=== PATIENT | female | born 1930 | race African-American/Black ===

== ENCOUNTER 2017-01-07 07:27 | Emergency (ER) | payer OTHER ==
[~2017-01-07 07:27] MED LIST: ACET325T9 PO; ACET650S19 PO; AMLO2.5T2 PO; AMLO5TAB4 PO; ASPI325T4 PO; CEPH-264 PO; D ME PO; DONE5TAB33 PO; DOXY100T PO; FURO-68 PO; FURO40TA4 PO; GABA-585 PO; IPRA3AMP IH; IPRA3AMP23 IH; LISI2.5T PO; MAGN400C PO; METO-269 PO; MULT-18 PO; ONDA4TAB7 PO; PANT40TA3 PO; PANT40TA5 PO; POTA10CA PO; POTA10TA31 PO; PRED-220 PO; RANI75TA95 PO
[2017-01-07] MEDS ORDERED: FAMOTIDINE 20 MG/2 ML VIAL IVP ONE (07:30)
[2017-01-07] MEDS ORDERED: methylPREDNISolone SOD SUCC PF 125 MG/2 ML VIAL. IV ONE (07:30)
[2017-01-07] MEDS ORDERED: IV NORMAL SALINE 500ML BAG 500 ML IV ONE (07:30)
--- NOTE | 2017-01-07 07:35 | PHYS DOC ---
Past Medical History Past Medical History: CHF, Dementia, Diabetes-Type II, GERD, Hypertension, UTI , Other Additional Past Medical Histor: alzheimer; kidney CA; hypopotassium; wheezing; neuropathy; cerebral degener Past Surgical History: No Surgical History Additional Past Surgical Histo: unknown Alcohol Use: None Drug Use: None Adult General Chief Complaint Chief Complaint: ALLERGIC REACTION HPI HPI Patient is a 86 year old female presents emergency room via EMS transport from local nursing facility with concerns for possible allergic reaction secondary to swollen tongue that was observed by the nursing staff at 0650 this morning. EMS did provide 25 mg of Benadryl IV in route to the facility. There was no known contacts with known allergens the patient has ( sulfa, adhesive and lisinopril). It is reported by EMS that patient has been on Levaquin for 5 days , family is not bedside, states the patient was initiated on the Levaquin after concern for pneumonia as "her confusion was worse", and she was noted to have a chest x-ray with concerning findings. According to EMS and patient's medication sheet, patient has not received any medications this morning. The last medication she received was her bedtime medications. No medications were given this morning. Patient herself has no recall of previous episodes similar to this , although patient's daughter states that she may have had a similar reaction after receiving sulfa several years ago. She does have a history of dementia, though she is answering all questions appropriately in the ED at this time. Review of Systems Review of Systems Constitutional: Denies fever or chills [] Eyes: Denies change in visual acuity, redness, or eye pain [] HENT: Denies nasal congestion or sore throat [] Respiratory: Denies cough or shortness of breath [] Cardiovascular: No additional information not addressed in HPI [] GI: Denies abdominal pain, nausea, vomiting, bloody stools or diarrhea [] : Denies dysuria or hematuria [] Musculoskeletal: Denies back pain or joint pain [] Integument: Denies rash or skin lesions [] Neurologic: Denies headache, focal weakness or sensory changes [] Endocrine: Denies polyuria or polydipsia [] Current Medications Current Medications Current Medications Medications (Trade) Dose Ordered Sig/Juan F Start Time Stop Time Status Last Admin Dose Admin Famotidine (Pepcid) 20 mg 1X ONCE 01/07/17 07:30 01/07/17 07:33 DC 01/07/17 07:41 20 MG Methylprednisolone Sodium Succinate (Solu-Medrol 125mg Vial) 125 mg 1X ONCE 01/07/17 07:30 01/07/17 07:33 DC 01/07/17 07:41 125 MG Sodium Chloride (Iv Sodium Chloride 0.9% 500ml Bag) 500 ml @ 500 mls/hr 1X ONCE 01/07/17 07:30 01/07/17 08:35 DC Allergies Allergies Allergies Coded Allergies Type Severity Reaction Last Updated Verified Sulfa (Sulfonamide Antibiotics) Allergy Severe Possible Angioedema 12/03/15 Yes lisinopril Allergy Severe Possible Angioedema 09/05/14 Yes adhesive Allergy Intermediate 09/06/14 Yes I S O L A T I O N *CONTACT* Allergy Unknown 12/03/15 Yes Physical Exam Physical Exam Constitutional: Well developed, well nourished, no acute distress, non-toxic appearance. Patient sitting in a high semi-Fowlers position no acute distress. HENT: Normocephalic, atraumatic, bilateral external ears normal, oropharynx moist, no oral exudates, nose normal. There is no facial angioedema. There is no trismus or muffled speech. Patient's tongue does not appear to be edematous. It does appear to be large in size which is slightly larger on the left than the right.. Posterior oropharynx is clear without any evidence of swelling/ edema. Eyes: PERRLA, EOMI, conjunctiva normal, no discharge. [] Neck: Normal range of motion, no tenderness, supple, no stridor. There is no palpable subcutaneous emphysema or deviation of the trachea. Cardiovascular:Heart rate regular rhythm, no murmur [] Lungs & Thorax: Bilateral breath sounds clear to auscultation [] Abdomen: Bowel sounds normal, soft, no tenderness, no masses, no pulsatile masses. [] Skin: Warm, dry, no erythema, no rash. [] Back: No tenderness, no CVA tenderness. [] Extremities: No tenderness, no cyanosis, no clubbing, ROM intact, no edema. [] Neurologic: Alert and oriented X 3, normal motor function, normal sensory function, no focal deficits noted. [] Psychologic: Affect normal, judgement normal, mood normal. [] Current Patient Data Vital Signs Vital Signs Date Time Temp Pulse Resp B/P Pulse Ox O2 Delivery O2 Flow Rate FiO2 01/07/17 07:27 98.4 96 20 174/84 95 Nasal Cannula 2 98.4 Lab Values Laboratory Tests Test 01/07/17 08:06 01/07/17 08:10 Urine Collection Type Unknown Urine Color Yellow Urine Clarity Clear Urine pH 7.5 Urine Specific [place] 1.020 Urine Protein Negativemg/dL (NEG-TRACE) Urine Glucose (UA) Negativemg/dL (NEG) Urine Ketones (Stick) Negativemg/dL (NEG) Urine Blood Negative (NEG) Urine Nitrite Negative (NEG) Urine Bilirubin Negative (NEG) Urine Urobilinogen Dipstick 0.2mg/dL (0.2 mg/dL) Urine Leukocyte Esterase Negative (NEG) Urine RBC 0/HPF (0-2) Urine WBC 1-4/HPF (0-4) Urine Squamous Epithelial Cells Mod/LPF Urine Bacteria 0/HPF (0-FEW) Urine Mucus Slight/LPF White Blood Count 8.2x10^3/uL (4.0-11.0) Red Blood Count 4.14x10^6/uL (3.50-5.40) Hemoglobin 9.8g/dL (12.0-15.5) L Hematocrit 31.8% (36.0-47.0) L Mean Corpuscular Volume 77fL (79-100) L Mean Corpuscular Hemoglobin 24pg (25-35) L Mean Corpuscular Hemoglobin Concent 31g/dL (31-37) Red Cell Distribution Width 17.2% (11.5-14.5) H Platelet Count 300x10^3/uL (140-400) Neutrophils (%) (Auto) 58% (31-73) Lymphocytes (%) (Auto) 31% (24-48) Monocytes (%) (Auto) 7% (0-9) Eosinophils (%) (Auto) 3% (0-3) Basophils (%) (Auto) 1% (0-3) Neutrophils # (Auto) 4.7x10^3uL (1.8-7.7) Lymphocytes # (Auto) 2.5x10^3/uL (1.0-4.8) Monocytes # (Auto) 0.6x10^3/uL (0.0-1.1) Eosinophils # (Auto) 0.2x10^3/uL (0.0-0.7) Basophils # (Auto) 0.1x10^3/uL (0.0-0.2) Sodium Level 145mmol/L (136-145) Potassium Level 3.9mmol/L (3.5-5.1) Chloride Level 106mmol/L (98-107) Carbon Dioxide Level 32mmol/L (21-32) Anion Gap 7 (6-14) Blood Urea Nitrogen 19mg/dL (7-20) Creatinine 1.1mg/dL (0.6-1.0) H Estimated GFR (Cockcroft-Gault) 57.0 Glucose Level 100mg/dL (70-99) H Calcium Level 9.5mg/dL (8.5-10.1) Laboratory Tests 01/07/17 08:10 Laboratory Tests 01/07/17 08:10 EKG EKG ECG: Rhythm strip: Sinus rhythm, heart rate 84 bpm, no ectopy. As interpreted by me. Radiology/Procedures Radiology/Procedures Not indicated. [] Course & Med Decision Making Course & Med Decision Making 20 mg of Pepcid and 125 mg of Solu-Medrol were ordered. Dr. Holguin was made aware of this patient. I did assume care of this patient, patient did not have any evidence of acute angioedema on my examination, with her speech, and no mucosal swelling with identified. Patient has received the Solu-Medrol, Pepcid and Benadryl as stated. Due to daughters report of some mental status changes potentially, and of cough, chest x-rays obtained that revealed a likely persistent pleural effusion, no evidence of infiltrates, laboratory studies and urine to not reveal evidence of infection or other concerning findings. Patient upon review of records, is on hospice. She states that she is feeling well, and like to return to the facility. After several hours of observation the ED, she's not had any change in her condition, I did speak with Dr. Johns, her primary care provider, who is agreeable with plan for the patient return to the facility where they will continue to monitor her, along with her hospice nursing, and will discontinue the Levaquin as there is no indication for its use. Patient is agreeable to this plan, resting calmly awaiting transport back to the nursing facility. Dragon Disclaimer Dragon Disclaimer This electronic medical record was generated, in whole or in part, using a voice recognition dictation system. Departure Impression: Primary Impression: Encounter for medical screening examination Disposition: HOME, SELF-CARE Condition: STABLE Referrals: STAS JOHNS MD (PCP) Departure Departure Impression: Primary Impression: Encounter for medical screening examination Disposition: HOME, SELF-CARE Condition: STABLE Referrals: STAS JOHNS MD (PCP) SADE CADENA Jan 07, 2017 07:35 FARZANA HOLGUIN DO Jan 07, 2017 10:20
--- NOTE | 2017-01-07 08:19 | RAD ---
Portable chest, 01/07/2017: History: Cough Comparison is made to a study from 02/10/2016. The patient is rotated to the right. The heart is enlarged. There is a retrocardiac density compatible with a hiatal hernia. There is unchanged widening of the superior mediastinum, probably due to ectatic vascular structures accentuated by patient rotation. The pulmonary vascularity is normal. There is a persistent left basilar opacity with blunting of the left lateral costophrenic angle compatible with ongoing or recurrent pleural fluid. The right chest is clear. The bony structures are demineralized. IMPRESSION: 1. Cardiomegaly. 2. Small ongoing or recurrent left pleural effusion. 3. Hiatal hernia.
[2017-01-07 08:24] LABS: BASO # 0.1 x10^3/uL (0.0-0.2); BASO % 1 % (0-3); EOS % 3 % (0-3); HEMATOCRIT 31.8 % (36.0-47.0); HEMOGLOBIN 9.8 g/dL (12.0-15.5); LYMPH # 2.5 x10^3/uL (1.0-4.8); LYMPH % 31 % (24-48); MEAN CORPUSCULAR HEMOGLOBIN 24 pg (25-35); MEAN CORPUSCULAR HGB CONC 31 g/dL (31-37); MEAN CORPUSCULAR VOLUME 77 fL (79-100); MONO % 7 % (0-9); NEUT % 58 % (31-73); PLATELET COUNT 300 x10^3/uL (140-400); RED BLOOD COUNT 4.14 x10^6/uL (3.50-5.40); RED CELL DISTRIBUTION WIDTH 17.2 % (11.5-14.5); WHITE BLOOD COUNT 8.2 x10^3/uL (4.0-11.0)
[2017-01-07 08:26] LABS: BILIRUBIN,URINE NEGATIVE (NEG); GLUCOSE,URINE NEGATIVE (NEG); NITRITE,URINE NEGATIVE (NEG); PH,URINE 7.5; PROTEIN,URINE NEGATIVE (NEG-TRACE); UROBILINOGEN,URINE 0.2 mg/dL (0.2 mg/dL)
[2017-01-07 08:36] LABS: CALCIUM 9.5 mg/dL (8.5-10.1); CREATININE 1.1 mg/dL (0.6-1.0); POTASSIUM 3.9 mmol/L (3.5-5.1)
[2017-01-07 08:48] LABS: BACTERIA,URINE 0 /HPF (0-FEW); RBC,URINE 0 /HPF (0-2); SQUAMOUS EPITHELIAL CELL,UR MOD /LPF
[2017-01-07 10:00] VITALS: BP 193/81
== END 2017-01-07 10:53 | disposition home or self-care (01) ==
LOC: ER 07:27
DX: Z00.00 Encounter for general adult medical examination without abnormal findings (principal); T78.40XA Allergy, unspecified, initial encounter; I11.0 Hypertensive heart disease with heart failure; I50.9 Heart failure, unspecified; E11.40 Type 2 diabetes mellitus with diabetic neuropathy, unspecified; F02.80 Dementia in other diseases classified elsewhere, unspecified severity, without behavioral disturbance, psychotic disturbance, mood disturbance, and anxiety; G30.9 Alzheimer's disease, unspecified; K21.9 Gastro-esophageal reflux disease without esophagitis; K44.9 Diaphragmatic hernia without obstruction or gangrene; Z88.2 Allergy status to sulfonamides; Z88.8 Allergy status to other drugs, medicaments and biological substances; Z91.041 Radiographic dye allergy status
CPT/HCPCS: 36415; 71010; 80048; 81001; 85027; 96374; 96375; 99285; J2930; S0028

== ENCOUNTER 2019-08-25 14:36 | Emergency (ER) | payer MEDICARE, OTHER ==
[~2019-08-25] VITALS: Ht 157.5 cm; Wt 90.7 kg
[~2019-08-25 14:36] MED LIST changes: +ACET650S PO; -ACET650S19 PO; -ASPI325T4 PO; +ASPI325T8 PO; -DONE5TAB33 PO; +DONE5TAB56 PO; -IPRA3AMP IH; +IPRA3AMP29 IH; -PANT40TA3 PO; -PANT40TA5 PO; +PANT40TA77 PO; -POTA10CA PO; +POTA10TA12 PO; +RANI-348 PO; -RANI75TA95 PO
--- NOTE | 2019-08-25 15:05 | PHYS DOC ---
Past Medical History Past Medical History: CHF, Dementia, Diabetes-Type II, DVT, GERD, Hypertension, UTI, Other Additional Past Medical Histor: alzheimer; kidney CA; hypopotassium; wheezing; neuropathy; cerebral degener Past Surgical History: No Surgical History Additional Past Surgical Histo: unknown Alcohol Use: None Drug Use: None Adult General HPI HPI Patient is an 88-year-old female who presents to the emergency department for evaluation. According to senior care report, the patient developed vaginal bleeding about 3 days ago, and they reported that her blood pressure was low today 100 over 40s at the nursing facility. She is on Xarelto for recent DVT. The patient's daughter is uncertain if she has had a hysterectomy or not but thinks that the patient might have. The patient herself has advanced dementia and is unable to provide any meaningful history at this point. She denies any pain, however. Review of Systems Review of Systems Unable to obtain secondary to dementia. Current Medications Current Medications Current Medications Medications (Trade) Dose Ordered Sig/Juan F Start Time Stop Time Status Last Admin Dose Admin Ceftriaxone Sodium (Rocephin Im) 1 gm 1X ONCE 08/25/19 16:45 08/25/19 16:46 Cancel Ceftriaxone Sodium (Rocephin) 1 gm 1X ONCE 08/25/19 16:45 08/25/19 16:51 DC Allergies Allergies Allergies Coded Allergies Type Severity Reaction Last Updated Verified Sulfa (Sulfonamide Antibiotics) Allergy Severe Possible Angioedema 12/03/15 Yes lisinopril Allergy Severe Possible Angioedema 09/05/14 Yes adhesive Allergy Intermediate 09/06/14 Yes I S O L A T I O N *CONTACT* Allergy Unknown 12/03/15 Yes Physical Exam Physical Exam PHYSICAL EXAM: CONSTITUTIONAL: Well developed, well nourished HEAD: normocephalic, atraumatic EENT: PERRL, EOMI. Conjunctivae normal color, sclerae non-icteric; moist mucous membranes. NECK: Supple, non-tender; no meningismus. LUNGS: Lungs CTA, breathing even and unlabored. Normal air movement. HEART: Regular rate and rhythm, no murmur CHEST: No deformity; non-tender ABDOMEN: The abdomen is soft, and non-tender, no masses or bruits. EXTREM: There are contractures and weakness of the left upper extremity, the rem ainder the extremities are unremarkable, with Normal ROM; no deformity, no calf tenderness. Normal pulses palpable in all extremities. There is no pedal edema. SKIN: No rash; no diaphoresis NEURO: Alert; cognitive impairment consistent with underlying dementia,; CN's grossly intact; strength grossly intact without focal deficit. BACK: No CVA TTP. GENITOURINARY: There is a thin reddish fluid in the vaginal vault, of uncertain origin. The cervix is not able to really visualize, possibly surgically absent. There does not appear to be any other obvious source of bleeding. The fluid in the vaginal vault appears to thin to be consistent with acute bleeding. Current Patient Data Vital Signs Vital Signs Date Time Temp Pulse Resp B/P (MAP) Pulse Ox O2 Delivery O2 Flow Rate FiO2 08/25/19 14:40 98.1 83 16 171/70 (103) 97 Room Air 98.1 Lab Values Laboratory Tests Test 08/25/19 15:15 08/25/19 16:15 Urine Collection Type U cath Urine Color Red Urine Clarity Turbid Urine pH Urine Specific [place] Urine Protein mg/dL (NEG-TRACE) Urine Glucose (UA) mg/dL (NEG) Urine Ketones (Stick) mg/dL (NEG) Urine Blood (NEG) Urine Nitrite (NEG) Urine Bilirubin (NEG) Urine Urobilinogen Dipstick mg/dL (0.2 mg/dL) Urine Leukocyte Esterase (NEG) Urine RBC Tntc /HPF (0-2) Urine WBC Tntc /HPF (0-4) Urine Bacteria Many /HPF (0-FEW) White Blood Count 9.4 x10^3/uL (4.0-11.0) Red Blood Count 4.01 x10^6/uL (3.50-5.40) Hemoglobin 10.2 g/dL (12.0-15.5) L Hematocrit 31.8 % (36.0-47.0) L Mean Corpuscular Volume 79 fL (79-100) Mean Corpuscular Hemoglobin 25 pg (25-35) Mean Corpuscular Hemoglobin Concent 32 g/dL (31-37) Red Cell Distribution Width 17.0 % (11.5-14.5) H Platelet Count 286 x10^3/uL (140-400) Neutrophils (%) (Auto) 80 % (31-73) H Lymphocytes (%) (Auto) 15 % (24-48) L Monocytes (%) (Auto) 4 % (0-9) Eosinophils (%) (Auto) 0 % (0-3) Basophils (%) (Auto) 1 % (0-3) Neutrophils # (Auto) 7.5 x10^3/uL (1.8-7.7) Lymphocytes # (Auto) 1.4 x10^3/uL (1.0-4.8) Monocytes # (Auto) 0.4 x10^3/uL (0.0-1.1) Eosinophils # (Auto) 0.0 x10^3/uL (0.0-0.7) Basophils # (Auto) 0.1 x10^3/uL (0.0-0.2) Prothrombin Time 16.7 SEC (11.7-14.0) H Prothrombin Time INR 1.4 (0.8-1.1) H Activated Partial Thromboplast Time 43 SEC (24-38) H Sodium Level 149 mmol/L (136-145) H Potassium Level 3.7 mmol/L (3.5-5.1) Chloride Level 108 mmol/L (98-107) H Carbon Dioxide Level 29 mmol/L (21-32) Anion Gap 12 (6-14) Blood Urea Nitrogen 23 mg/dL (7-20) H Creatinine 1.1 mg/dL (0.6-1.0) H Estimated GFR (Cockcroft-Gault) 56.7 BUN/Creatinine Ratio 21 (6-20) H Glucose Level 132 mg/dL (70-99) H Calcium Level 9.6 mg/dL (8.5-10.1) Total Bilirubin 0.2 mg/dL (0.2-1.0) Aspartate Amino Transferase (AST) 14 U/L (15-37) L Alanine Aminotransferase (ALT) 16 U/L (14-59) Alkaline Phosphatase 96 U/L (46-116) Total Protein 7.7 g/dL (6.4-8.2) Albumin 3.5 g/dL (3.4-5.0) Albumin/Globulin Ratio 0.8 (1.0-1.7) L Laboratory Tests 08/25/19 16:15 Laboratory Tests 08/25/19 16:15 EKG EKG [] atrial fibrillation at a rate of 75 beats for minute, normal axis, normal intervals, there are no acute ischemic ST/T changes. Nonspecific changes are present. Radiology/Procedures Radiology/Procedures PROCEDURE: PELVIS COMPLETE PELVIS COMPLETE History: CT May 12, 2011 Comparison: None. Technique: Grayscale and color Doppler imaging of the pelvis was performed using transabdominal and transvaginal technique. Findings: Uterus and ovaries not identified. Heterogeneous lesion within the dependent portion of the urinary bladder measures 4.3 x 2.9 x 3.9 cm. No Doppler blood flow. No urinary bladder wall thickening. IMPRESSION: 1. Heterogeneous lesion dependently layering within the urinary bladder, may represent blood products. Recommend further evaluation and follow-up to exclude underlying mass. 2. Uterus and ovaries not identified, likely surgically absent.[] Course & Med Decision Making Course & Med Decision Making Pertinent Labs and Imaging studies reviewed. (See chart for details) []4:50 PM: The patient's condition remains stable. Her daughters are at her bedside, they state that she was just treated with a course of Macrobid for UTI several days ago. This is not on the senior care paperwork. I discussed the patient's case with Dr. Curry. He will monitor the urine culture and we will give her dose of Rocephin here and Keflex to take at the nursing facility. I also discussed importance of further outpatient follow-up for hematuria. I discussed the diagnostic considerations with the patient's family and they both agreed that due to her advanced age and underlying debility, even if she were to definitively be diagnosed with a renal cancer (something she has had in the past, along with a nephrectomy), or bladder cancer, they would likely manage her expectantly without pursuing aggressive treatment or chemotherapy. Both the patient's PCP whom I spoke with and myself agree that outpatient urology follow-up is appropriate at this time. Return precautions were discussed in detail. Dragon Disclaimer Dragon Disclaimer This electronic medical record was generated, in whole or in part, using a voice recognition dictation system. Departure Departure Impression: Primary Impression: Hematuria Disposition: HOME, SELF-CARE Condition: STABLE Referrals: PAYTON CURRY MD, MIRIAN MD Patient Instructions: Hematuria, Adult Scripts Cephalexin (KEFLEX) 500 Mg Capsule 500 MG PO QID for 7 Days, #28 CAP Prov: ALEXANDRA REED MD 08/25/19 ALEXANDRA REED MD Aug 25, 2019 15:05
[2019-08-25 15:44] LABS: CLARITY,URINE TURBID; COLOR,URINE RED
[2019-08-25 15:53] VITALS: BP 143/58
[2019-08-25 15:54] LABS: RBC,URINE TNTC /HPF (0-2)
[2019-08-25 15:55] LABS: BACTERIA,URINE MANY /HPF (0-FEW); WBC,URINE TNTC /HPF (0-4)
--- NOTE | 2019-08-25 15:56 | RAD ---
PELVIS COMPLETE History: CT May 12, 2011 Comparison: None. Technique: Grayscale and color Doppler imaging of the pelvis was performed using transabdominal and transvaginal technique. Findings: Uterus and ovaries not identified. Heterogeneous lesion within the dependent portion of the urinary bladder measures 4.3 x 2.9 x 3.9 cm. No Doppler blood flow. No urinary bladder wall thickening. IMPRESSION: 1. Heterogeneous lesion dependently layering within the urinary bladder, may represent blood products. Recommend further evaluation and follow-up to exclude underlying mass. 2. Uterus and ovaries not identified, likely surgically absent. Electronically signed by: Mark Arce DO (08/25/2019 3:53 PM) [id number]
[2019-08-25 16:31] LABS: BASO # 0.1 x10^3/uL (0.0-0.2); BASO % 1 % (0-3); EOS % 0 % (0-3); HEMATOCRIT 31.8 % (36.0-47.0); HEMOGLOBIN 10.2 g/dL (12.0-15.5); LYMPH # 1.4 x10^3/uL (1.0-4.8); LYMPH % 15 % (24-48); MEAN CORPUSCULAR HEMOGLOBIN 25 pg (25-35); MEAN CORPUSCULAR HGB CONC 32 g/dL (31-37); MEAN CORPUSCULAR VOLUME 79 fL (79-100); MONO # 0.4 x10^3/uL (0.0-1.1); MONO % 4 % (0-9); NEUT # 7.5 x10^3/uL (1.8-7.7); NEUT % 80 % (31-73); PLATELET COUNT 286 x10^3/uL (140-400); RED BLOOD COUNT 4.01 x10^6/uL (3.50-5.40); WHITE BLOOD COUNT 9.4 x10^3/uL (4.0-11.0)
[2019-08-25 16:35] LABS: CALCIUM 9.6 mg/dL (8.5-10.1); CREATININE 1.1 mg/dL (0.6-1.0); GFR 56.7; POTASSIUM 3.7 mmol/L (3.5-5.1)
[2019-08-25 16:42] LABS: ALBUMIN 3.5 g/dL (3.4-5.0); ALBUMIN/GLOBULIN RATIO 0.8 (1.0-1.7); PROTHROMBIN TIME PATIENT 16.7 SEC (11.7-14.0); TOTAL BILIRUBIN 0.2 mg/dL (0.2-1.0); TOTAL PROTEIN 7.7 g/dL (6.4-8.2)
[2019-08-25] MEDS ORDERED: cefTRIAXone IV Push 1 GM VIAL. IVP ONE (16:45)
[2019-08-25] MEDS ORDERED: cefTRIAXone IM 1 GM VIAL IM ONE (16:45)
[2019-08-25] MEDS ORDERED: CEPH-264 PO (16:54)
--- NOTE | 2019-08-26 06:07 | EKG ---
[facility] [address] [place] [address] Test Date: 2019-08-25 Test Time: 16:21:00 Pat Name: SHRUTI MASSEY Department: Room: Gender: F Weed Controller: : [id number] Requested By: ALEXANDRA REED Order Number: [id number] Reading MD: Ozzy Mishra MD Measurements Intervals [place] Rate: 75 P: DE: QRS: -16 QRSD: 86 T: -14 QT: 440 QTc: 494 Interpretive Statements ATRIAL FIBRILLATION NON-SPECIFIC ST/T CHANGES Electronically Signed On 09-04-2019 11:54:50 CDT by Ozzy Mishra MD
== END 2019-08-25 18:17 | disposition home or self-care (01) ==
LOC: ER 14:36
DX: R31.9 Hematuria, unspecified (principal); N93.9 Abnormal uterine and vaginal bleeding, unspecified; K21.9 Gastro-esophageal reflux disease without esophagitis; I11.0 Hypertensive heart disease with heart failure; I50.9 Heart failure, unspecified; E11.40 Type 2 diabetes mellitus with diabetic neuropathy, unspecified; Z85.528 Personal history of other malignant neoplasm of kidney; Z86.718 Personal history of other venous thrombosis and embolism; Z90.710 Acquired absence of both cervix and uterus; Z88.2 Allergy status to sulfonamides; Z88.8 Allergy status to other drugs, medicaments and biological substances; Z91.041 Radiographic dye allergy status
CPT/HCPCS: 36415; 76856; 80053; 81001; 85025; 85610; 85730; 86850; 86900; 86901; 87086; 87186; 93005; 96374; 99285; J0696; P9612